=== PATIENT | female | born 1995 | race Caucasian/White ===

== ENCOUNTER 2020-04-05 14:46 | Emergency (ER) | payer MEDICAID ==
[2020-04-05] MEDS ORDERED: Aspirin 81 MG Tab.Chew PO ONE (14:59)
[2020-04-05] MEDS ORDERED: Morphine 10 MG/ML Syringe IVPUSH ONE (14:59)
--- NOTE | 2020-04-05 15:31 | EDM.PDOC ---
ED HPI GENERAL MEDICAL PROBLEM - General Chief Complaint: Chest Pain Stated Complaint: shortness breath Time Seen by Provider: 04/05/20 14:50 Source of Information: Reports: Patient History Limitations: Reports: No Limitations - History of Present Illness INITIAL COMMENTS - FREE TEXT/NARRATIVE: Patient is a 24 y/o female, with PMHx significant for smoking, who presents with sudden onset right-sided chest pain that started 20 minutes ago. The pain is sharp and tight, radiates to the right shoulder blade, and worse with sitting up straight and deep inhalation. Patient denies being , denies control, N/V/D, cough, dizziness, trauma, or numbness/tingling. - Related Data Allergies Allergy/AdvReac Type Severity Reaction Status Date / Time No Known Allergies Allergy Verified 04/05/20 14:48 Home Meds: Home Meds NK [No Known Home Meds] 04/05/20 [History] ED ROS GENERAL - Review of Systems Review Of Systems: Comprehensive ROS is negative, except as noted in HPI. ED EXAM, GENERAL - Physical Exam Exam: See Below Free Text/Narrative:: Decreased BS on the right side, no subcutaneous emphysema, no trachea deviation Exam Limited By: No Limitations General Appearance: Alert, No Apparent Distress, Anxious Respiratory/Chest: No Accessory Muscle Use, Chest Non-Tender, Decreased Breath Sounds Cardiovascular: Normal Peripheral Pulses, Regular Rate, Rhythm, No Edema, No Murmur Peripheral Pulses: 2+: Radial (L), Radial (R), Posterior Tibial (L), Posterior Tibial (R), Dorsalis Pedis (L), Dorsalis Pedis (R) Neurological: Alert, Oriented Skin Exam: Warm, Dry, Intact ED CARDIOLOGY PROCEDURES - Additional/Other Procedure(s) Other (Free Text) Procedure(s): Chest tube insertion Patient given fentanyl (25 mcg IV increments) total 100 mcg IV Patient given ketamine 50 mg IV Patient given zofran 4 mg IV Chest xray confirmed 50-75% right lung pneumothorax 2.5 cm incision made to 4th intercoastal space and chest tube place at number 6 Big taylor of air Chest tube was secured with suture and gauze/tape placed and secured around tube Repeat chest xray confirmed tube placement and re-inflation of lung. Course - Vital Signs Text/Narrative:: Please see procedure - chest tube insertion for pneumothorax. Patient given fentanyl 100 mcg, ketamine 50 mg, zofran 8 mg, dilaudid 1 mg, valium 2 mg for pain management and nausea. Chest tube inserted into suction and no air leak seen. Air flight and transferred to [facility]. Accepting surgeon, Dr. Yoder. Last Recorded V/S: Last Vital Signs Temp 36.6 C 04/05/20 14:54 Pulse 89 04/05/20 17:17 Resp 16 04/05/20 17:17 BP 108/63 04/05/20 17:17 Pulse Ox 100 04/05/20 17:17 - Orders/Labs/Meds Orders: Active Orders 24 hr Category Date Time Status EKG Documentation Completion [RC] ASDIRECTED Care 04/05/20 15:00 Active CXR [Chest 1V Frontal] [CR] Stat Exams 04/05/20 15:35 Taken CXR [Chest 2V] [CR] Stat Exams 04/05/20 14:58 Taken Sodium Chloride 0.9% [Normal Saline] 1,000 ml Med 04/05/20 16:45 Active IV ASDIRECTED fentaNYL [Sublimaze] Med 04/05/20 16:12 Active 50 mcg IVPUSH Q5M PRN EKG 12 Lead [EK] Routine Ther 04/05/20 15:00 Ordered Medication Orders Fentanyl (Sublimaze) 50 mcg IVPUSH Q5M PRN PRN Reason: Pain Last Admin: 04/05/20 16:14 Dose: 50 mcg Documented by: OLEGARIO Sodium Chloride (Normal Saline) 1,000 mls @ 50 mls/hr IV ASDIRECTED JACOBO Last Admin: 04/05/20 16:35 Dose: 999 mls/hr Documented by: OLEGARIO Labs: Laboratory Tests 04/05/20 04/05/20 04/05/20 Range/Units 15:09 15:10 15:10 WBC 8.8 (4.0-11.0) K/uL RBC 4.04 (3.80-5.80) M/uL Hgb 13.5 (11.5-16.5) g/dL Hct 38.4 (37.0-47.0) % MCV 95 (76-96) fL MCH 33.4 H (27.0-32.0) pg MCHC 35.2 H (31.0-35.0) g/dL RDW 11.8 (11.0-16.0) % Plt Count 260 (150-500) K/uL MPV 10.6 H (6.0-10.0) fL Neut % (Auto) 60.3 (45.0-70.0) % Lymph % (Auto) 32.7 (20.0-40.0) % [place] % (Auto) 4.9 (3.0-10.0) % Eos % (Auto) 1.9 (1.0-5.0) % Baso % (Auto) 0.2 (0.0-0.5) % Neut # (Auto) 5.32 (2.00-7.50) K/uL Lymph # (Auto) 2.89 (1.50-4.00) K/uL [place] # (Auto) 0.43 (0.20-0.80) K/uL Eos # (Auto) 0.17 (0.04-0.40) K/uL Baso # (Auto) 0.02 (0.02-0.10) K/uL D-Dimer, Quantitative < 100 (0-400) ng/mL Sodium 138 (136-145) mmol/L Potassium 3.6 (3.5-5.1) mmol/L Chloride 104 (98-107) mmol/L Carbon Dioxide 25.6 (21.0-32.0) mmol/L Anion Gap 12.0 (5.0-15.0) mmol/L BUN 20 (8-26) mg/dL Creatinine 0.91 (0.55-1.02) mg/dL Est Cr Clr Drug Dosing TNP Estimated GFR (MDRD) > 60 (>60) MLS/MIN BUN/Creatinine Ratio 22.0 (6-25) Glucose 109 H (74-100) mg/dL Calcium 9.1 (8.5-10.1) mg/dL Total Bilirubin 0.5 (0.0-1.0) mg/dL AST 16 (15-37) U/L ALT 19 (12-78) U/L Alkaline Phosphatase 44 L (46-116) U/L Troponin I (0.000-0.060) ng/mL Total Protein 7.7 (6.4-8.2) g/dL Albumin 4.3 (3.4-5.0) g/dL Globulin 3.4 (2.2-4.2) g/dL Albumin/Globulin Ratio 1.3 (0.8-2.0) SARS-CoV-2 RNA (RT-PCR) 04/05/20 04/05/20 Range/Units 15:11 15:15 WBC (4.0-11.0) K/uL RBC (3.80-5.80) M/uL Hgb (11.5-16.5) g/dL Hct (37.0-47.0) % MCV (76-96) fL MCH (27.0-32.0) pg MCHC (31.0-35.0) g/dL RDW (11.0-16.0) % Plt Count (150-500) K/uL MPV (6.0-10.0) fL Neut % (Auto) (45.0-70.0) % Lymph % (Auto) (20.0-40.0) % [place] % (Auto) (3.0-10.0) % Eos % (Auto) (1.0-5.0) % Baso % (Auto) (0.0-0.5) % Neut # (Auto) (2.00-7.50) K/uL Lymph # (Auto) (1.50-4.00) K/uL [place] # (Auto) (0.20-0.80) K/uL Eos # (Auto) (0.04-0.40) K/uL Baso # (Auto) (0.02-0.10) K/uL D-Dimer, Quantitative (0-400) ng/mL Sodium (136-145) mmol/L Potassium (3.5-5.1) mmol/L Chloride (98-107) mmol/L Carbon Dioxide (21.0-32.0) mmol/L Anion Gap (5.0-15.0) mmol/L BUN (8-26) mg/dL Creatinine (0.55-1.02) mg/dL Est Cr Clr Drug Dosing Estimated GFR (MDRD) (>60) MLS/MIN BUN/Creatinine Ratio (6-25) Glucose (74-100) mg/dL Calcium (8.5-10.1) mg/dL Total Bilirubin (0.0-1.0) mg/dL AST (15-37) U/L ALT (12-78) U/L Alkaline Phosphatase (46-116) U/L Troponin I < 0.017 (0.000-0.060) ng/mL Total Protein (6.4-8.2) g/dL Albumin (3.4-5.0) g/dL Globulin (2.2-4.2) g/dL Albumin/Globulin Ratio (0.8-2.0) SARS-CoV-2 RNA (RT-PCR) Negative Meds: Medications Generic Name Dose Route Start Last Admin Trade Name Freq PRN Reason Stop Dose Admin Fentanyl 50 mcg 04/05/20 16:12 04/05/20 16:14 Sublimaze IVPUSH 50 mcg Q5M PRN Administration Pain Sodium Chloride 1,000 mls @ 50 mls/hr 04/05/20 16:45 04/05/20 16:35 Normal Saline IV 999 mls/hr ASDIRECTED JACOBO Administration Discontinued Medications Generic Name Dose Route Start Last Admin Trade Name Freq PRN Reason Stop Dose Admin Aspirin 324 mg 04/05/20 14:59 04/05/20 15:05 Aspirin PO 04/05/20 15:00 324 mg ONETIME ONE Administration Diazepam 1 mg 04/05/20 16:23 04/05/20 16:27 Valium IV 04/05/20 16:24 1 mg ONETIME ONE Administration Diazepam Confirm 04/05/20 16:34 04/05/20 16:53 Valium Administered 04/05/20 16:35 Not Given Dose 5 mg .ROUTE .STK-MED ONE Diazepam 1 mg 04/05/20 17:06 04/05/20 17:08 Valium IV 04/05/20 17:07 1 mg ONETIME ONE Administration Fentanyl 25 mcg 04/05/20 15:41 04/05/20 15:47 Sublimaze IVPUSH 04/05/20 15:42 25 mcg ONETIME ONE Administration Hydromorphone HCl 1 mg 04/05/20 16:17 04/05/20 16:21 Dilaudid IVPUSH 04/05/20 16:18 1 mg ONETIME ONE Administration Ketamine HCl 20 mg 04/05/20 16:02 04/05/20 15:59 Ketalar IVPUSH 04/05/20 16:03 20 mg ONETIME ONE Administration Ketamine HCl 10 mg 04/05/20 16:03 04/05/20 16:01 Ketalar IVPUSH 04/05/20 16:04 10 mg ONETIME ONE Administration Ketamine HCl 20 mg 04/05/20 16:07 04/05/20 16:05 Ketalar IVPUSH 04/05/20 16:08 20 mg ONETIME ONE Administration Morphine Sulfate 2 mg 04/05/20 14:59 04/05/20 15:20 Morphine IVPUSH 04/05/20 15:00 2 mg ONETIME ONE Administration Ondansetron HCl 4 mg 04/05/20 15:53 04/05/20 15:54 Zofran IVPUSH 04/05/20 15:54 4 mg ONETIME ONE Administration Ondansetron HCl 4 mg 04/05/20 16:49 04/05/20 16:53 Zofran IVPUSH 04/05/20 16:50 4 mg ONETIME ONE Administration Ondansetron HCl Confirm 04/05/20 17:01 Zofran Administered 04/05/20 17:02 Dose 4 mg .ROUTE .STK-MED ONE Departure - Departure Time of Disposition: 17:30 Disposition: DC/Tfer to [facility] 02 Reason for Transfer *Q: Other (pneumothorax on right side) Condition: Good Clinical Impression: Pneumothorax on right Sepsis Event Note (ED) - Evaluation Sepsis Screening Result: No Definite Risk - Focused Exam Vital Signs: Vital Signs Temp Pulse Resp BP Pulse Ox 04/05/20 17:17 89 16 108/63 100 04/05/20 16:31 91 16 88/58 L 100 04/05/20 16:07 115 H 16 105/54 L 99 04/05/20 16:01 99 18 97/62 99 04/05/20 14:54 36.6 C 90 18 99/69 92 L 04/05/20 14:52 36.6 C 93 18 99/63 93 L - My Orders Last 24 Hours: My Active Orders 04/05/20 14:58 CXR [Chest 2V] [CR] Stat 04/05/20 15:00 EKG Documentation Completion [RC] ASDIRECTED EKG 12 Lead [EK] Routine 04/05/20 15:35 CXR [Chest 1V Frontal] [CR] Stat 04/05/20 16:12 fentaNYL [Sublimaze] 50 mcg IVPUSH Q5M PRN 04/05/20 16:45 Sodium Chloride 0.9% [Normal Saline] 1,000 ml IV ASDIRECTED - Assessment/Plan Last 24 Hours: My Active Orders 04/05/20 14:58 CXR [Chest 2V] [CR] Stat 04/05/20 15:00 EKG Documentation Completion [RC] ASDIRECTED EKG 12 Lead [EK] Routine 04/05/20 15:35 CXR [Chest 1V Frontal] [CR] Stat 04/05/20 16:12 fentaNYL [Sublimaze] 50 mcg IVPUSH Q5M PRN 04/05/20 16:45 Sodium Chloride 0.9% [Normal Saline] 1,000 ml IV ASDIRECTED
[2020-04-05] MEDS ORDERED: fentaNYL 100 MCG/2 ML SDV IVPUSH ONE (15:41)
[2020-04-05] MEDS ORDERED: Ondansetron 4 MG/2 ML SDV IVPUSH ONE ×2 (15:53→16:49)
[2020-04-05] MEDS ORDERED: Ketamine 200 MG/20 ML MDV IVPUSH ONE ×3 (16:02→16:07)
[2020-04-05] MEDS ORDERED: fentaNYL 100 MCG/2 ML SDV IVPUSH PRN (16:12)
[2020-04-05] MEDS ORDERED: HYDROmorphone 2 MG/ML SDV IVPUSH ONE (16:17)
[2020-04-05] MEDS ORDERED: diazePAM 5 MG/ML MDV IV ONE ×2 (16:23→17:06)
[2020-04-05] MEDS ORDERED: diazePAM 5 MG/ML MDV ONE (16:34)
[2020-04-05] MEDS ORDERED: Sodium Chloride 0.9% 1,000 ML IV SCH (16:45)
[2020-04-05] MEDS ORDERED: Ondansetron 4 MG/2 ML SDV ONE (17:01)
--- NOTE | 2020-04-06 13:43 | CR ---
Date of Service: 04/05/20 Clinical Data: chest pain PA AND LATERAL CHEST: No priors. The heart size is normal. There is a large right pneumothorax involving approximately 75% of the right hemithorax with significant collapse of the right lung. The left lung is clear. No pneumothorax on the left. No pleural effusions. IMPRESSION: Large right pneumothorax. The patient's physician was notified of the findings. [id number] MTDD
--- NOTE | 2020-04-06 14:07 | CR ---
Date of Service: 04/05/20 Clinical Data: shortness of breath AP CHEST: Comparison is made to a prior exam from earlier in the day. A right chest tube has been inserted in the interval. The large right pneumothorax is largely evacuated. There is persistent increased density in the right mid lung most likely representing atelectasis. The exam is otherwise unchanged from the prior. [id number] [facility]
== END 2020-04-05 17:20 ==
LOC: LB.ED 14:46
DX: J93.9 Pneumothorax, unspecified (principal); F17.200 Nicotine dependence, unspecified, uncomplicated; Z20.828 Contact with and (suspected) exposure to other viral communicable diseases
CPT/HCPCS: 32551; 36415; 71045; 71046; 80053; 84484; 85025; 85379; 93005; 96374; 96375; 96376; 99285-25; A9270-GY; J1170; J2270; J2405; J3010; J3360; J7030; U0002

== ENCOUNTER 2025-06-24 18:02 | Emergency (ER) | payer MEDICAID ==
[2025-06-24] MEDS ORDERED: Amoxicillin 250 MG/5 ML Susp 150 ML Bottle ONE (19:30)
== END 2025-06-24 19:45 | disposition home or self-care (01) ==
LOC: LB.ED 18:02
DX: J02.0 Streptococcal pharyngitis (principal); Z79.899 Other long term (current) drug therapy
CPT/HCPCS: 87651; 99283; A9270-GY